=== PATIENT | female | born 1960 | race African-American/Black ===

== ENCOUNTER 2022-11-15 14:23 | Inpatient (IN) | payer OTHER ==
[2022-11-15] MEDS ORDERED: ONDANSETRON 4 MG TABLET PO ONE (14:39)
[2022-11-15] MEDS ORDERED: SODIUM CHLORIDE 0.9% 500 ML INFUS.BAG IV ONE (14:39)
[2022-11-15] MEDS ORDERED: ONDANSETRON *ODT* 4 MG TABLET ONE (14:55)
[2022-11-15] MEDS ORDERED: ONDANSETRON 4 MG/2 ML VIAL ONE (15:09)
[2022-11-15] MEDS ORDERED: ONDANSETRON 4 MG/2 ML VIAL IVPUSH ONE (15:39)
[2022-11-15] MEDS ORDERED: ACETAMINOPHEN 1000 MG/100 ML BAG IVPB ONE (15:39)
[2022-11-15] MEDS ORDERED: ACETAMINOPHEN INJECTION 100 ML IVPB ONE (15:40)
[2022-11-15 16:06] LABS: HEMATOCRIT 40.8 % (32.4-45.2); HEMOGLOBIN 13.3 GM/dL (10.7-15.3); LYMPH % 7.1 % (8-40); MCH 23.1 pg (25.7-33.7); MCHC 32.6 g/dl (32.0-36.0); MEAN CELL VOLUME 70.9 fl (80-96); MEAN PLT VOLUME 9.1 fl (7.5-11.1); MONO % 6.3 % (3.8-10.2); NEUT % 86.6 % (42.8-82.8); PLATELET COUNT 265 10^3/uL (134-434); RBC 5.75 M/mm3 (3.60-5.2); RDW 17.3 % (11.6-15.6); WHITE BLOOD COUNT 13.8 K/mm3 (4.0-10.0)
[2022-11-15] MEDS ORDERED: METOCLOPRAMIDE HCL INJECTION 10 MG/2 ML VIAL IVPUSH ONE (16:09)
[2022-11-15 16:27] LABS: POTASSIUM 4.2 mmol/L (3.5-5.1)
[2022-11-15] MEDS ORDERED: METOCLOPRAMIDE HCL INJECTION 10 MG/2 ML VIAL IVPB ONE (16:27)
[2022-11-15 16:30] LABS: ALBUMIN 4.3 g/dl (3.4-5.0); CALCIUM 10.3 mg/dL (8.5-10.1)
[2022-11-15 16:31] LABS: BLOOD UREA NITROGEN 20.8 mg/dL (7-18)
[2022-11-15 16:35] LABS: BILIRUBIN,TOTAL 0.6 mg/dL (0.2-1); TOT PROT 8.6 g/dl (6.4-8.2)
[2022-11-15] MEDS ORDERED: METOCLOPRAMIDE HCL INJECTION 10 MG/2 ML VIAL ONE (16:55)
[2022-11-15] MEDS ORDERED: PROCHLORPERAZINE INJECTION 10 MG/2 ML VIAL IVPB ONE (17:52)
[2022-11-15] MEDS ORDERED: PROCHLORPERAZINE MALEATE 5 MG TABLET ONE (18:43)
[2022-11-15] MEDS ORDERED: LORazepam 2 MG/ML SDV VIAL IVPUSH ONE (21:15)
[2022-11-15 21:48] LABS: PH,URINE 8.5 (5.0-8.0); URINE APPEARANCE CLEAR; URINE BILIRUBIN NEGATIVE (NEGATIVE); URINE COLOR YELLOW; URINE GLUCOSE (UA) NEGATIVE (NEGATIVE); URINE KETONE NEGATIVE (NEGATIVE); URINE LEUK ESTERASE NEGATIVE (NEGATIVE); URINE NITRITE NEGATIVE (NEGATIVE); URINE PROTEIN TRACE (NEGATIVE); URINE UROBILINOGEN 0.2 mg/dL (0.2-1.0)
[2022-11-15] MEDS ORDERED: CEFTRIAXONE 1,000 MG in DEXTROSE 5%-WATER - 50 ML IVPB ONE (21:48)
[2022-11-15] MEDS ORDERED: CEFTRIAXONE 1 GM/50 ML BAG ONE (21:57)
[2022-11-15] MEDS ORDERED: DEXTROSE 5%-LACTATED RINGERS 1,000 ML IV SCH (23:15)
[2022-11-16 06:06] VITALS: BMI 25.8
[2022-11-16] MEDS: ONDANSETRON 4 MG/2 ML VIAL IVPUSH PRN ×3 (06:46→16:42)
[2022-11-16 09:25] LABS: HEMATOCRIT 42.1 % (32.4-45.2); HEMOGLOBIN 13.7 GM/dL (10.7-15.3); MCH 23.2 pg (25.7-33.7); MCHC 32.6 g/dl (32.0-36.0); MEAN PLT VOLUME 9.2 fl (7.5-11.1); PLATELET COUNT 248 10^3/uL (134-434); RBC 5.93 M/mm3 (3.60-5.2)
[2022-11-16 09:40] LABS: POTASSIUM 3.9 mmol/L (3.5-5.1)
[2022-11-16 09:44] LABS: BLOOD UREA NITROGEN 10.6 mg/dL (7-18)
[2022-11-16 09:45] LABS: CALCIUM 9.2 mg/dL (8.5-10.1)
[2022-11-16 09:48] LABS: CREATININE 0.7 mg/dL (0.55-1.3)
[2022-11-16 09:49] LABS: TOT PROT 8.2 g/dl (6.4-8.2)
[2022-11-16 09:50] LABS: BILIRUBIN,TOTAL 0.6 mg/dL (0.2-1)
[2022-11-16] MEDS ORDERED: LACTOBACILLUS ACIDOPHILUS 1 TABLET PO SCH (10:00)
[2022-11-16] MEDS ORDERED: CEFTRIAXONE 1 GM in DEXTROSE 5%-WATER - 50 ML IVPB SCH (10:00)
[2022-11-16] MEDS ORDERED: PANTOPRAZOLE SODIUM 40 MG VIAL IVPUSH SCH (10:00)
[2022-11-16] MEDS: VENLAFAXINE HCL 75 MG E.R. CAPSULES PO SCH ×2 (11:04→18:59)
[2022-11-16] MEDS: LOSARTAN POTASSIUM 50 MG TABLET PO SCH ×2 (11:04→18:59)
[2022-11-16] MEDS: ENOXAPARIN NA (PORCINE) 40 MG/0.4 ML DISP.SYRIN SQ SCH (11:04)
[2022-11-16] MEDS ORDERED: METOCLOPRAMIDE HCL INJECTION 10 MG/2 ML VIAL IVPUSH ONE (11:53)
[2022-11-16 17:36] LABS: METHADONE, UR NEGATIVE (NEGATIVE); URINE BENZODIAZEPINES NEGATIVE (NEGATIVE)
[2022-11-16 17:37] LABS: COCAINE, UR NEGATIVE (NEGATIVE); OPIATES, URI NEGATIVE (NEGATIVE); URINE BARBITURATES NEGATIVE (NEGATIVE)
[2022-11-16] MEDS: METOCLOPRAMIDE HCL 10 MG TABLET (FP) PO SCH (17:37)
[2022-11-16 17:38] LABS: PHENCYCLIDINE,URINE NEGATIVE (NEGATIVE)
[2022-11-16 17:43] LABS: URINE AMPHETAMINES NEGATIVE (NEGATIVE)
[2022-11-16] MEDS: SODIUM CHLORIDE 1,000 ML IV SCH (19:38)
[2022-11-16] MEDS: ACETAMINOPHEN 1000 MG/100 ML BAG IVPB PRN (22:28)
[2022-11-16] MEDS: ZOLPIDEM TARTRATE 5 MG TABLET PO PRN (22:28)
[2022-11-17] MEDS: ONDANSETRON 4 MG/2 ML VIAL IVPUSH PRN ×2 (04:19→08:02)
[2022-11-17] MEDS: METOCLOPRAMIDE HCL 10 MG TABLET (FP) PO SCH (06:35)
[2022-11-17 08:55] LABS: BASO % 0.4 % (0-2.0); EOS % 0.1 % (0-4.5); HEMOGLOBIN 14.9 GM/dL (10.7-15.3); LYMPH % 20.8 % (8-40); MCH 22.9 pg (25.7-33.7); MCHC 32.4 g/dl (32.0-36.0); MEAN CELL VOLUME 70.7 fl (80-96); MONO % 12.4 % (3.8-10.2); NEUT % 66.3 % (42.8-82.8); PLATELET COUNT 242 10^3/uL (134-434); RDW 16.9 % (11.6-15.6); WHITE BLOOD COUNT 9.2 K/mm3 (4.0-10.0)
[2022-11-17 09:16] LABS: POTASSIUM 3.6 mmol/L (3.5-5.1)
[2022-11-17 09:20] LABS: ALBUMIN 3.9 g/dl (3.4-5.0); BLOOD UREA NITROGEN 11.1 mg/dL (7-18); CALCIUM 9.9 mg/dL (8.5-10.1); MAGNESIUM 2.2 mg/dL (1.8-2.4)
[2022-11-17 09:23] LABS: CREATININE 0.8 mg/dL (0.55-1.3)
[2022-11-17 09:25] LABS: BILIRUBIN,TOTAL 1.2 mg/dL (0.2-1); TOT PROT 8.1 g/dl (6.4-8.2)
[2022-11-17 09:36] VITALS: RESP 20
[2022-11-17] MEDS: LOSARTAN POTASSIUM 50 MG TABLET PO SCH (09:38)
[2022-11-17] MEDS: ENOXAPARIN NA (PORCINE) 40 MG/0.4 ML DISP.SYRIN SQ SCH (09:38)
[2022-11-17] MEDS: VENLAFAXINE HCL 75 MG E.R. CAPSULES PO SCH (09:38)
[2022-11-17] MEDS: SODIUM CHLORIDE 1,000 ML IV SCH ×2 (09:39→22:04)
[2022-11-17] MEDS: METOCLOPRAMIDE HCL INJECTION 10 MG/2 ML VIAL IVPUSH PRN ×2 (12:03→21:17)
[2022-11-17] MEDS ORDERED: ONDANSETRON 4 MG/2 ML VIAL IVPB ONE ×2 (13:08→14:45)
[2022-11-17] MEDS: ACETAMINOPHEN 1000 MG/100 ML BAG IVPB PRN (21:15)
[2022-11-17] MEDS: ZOLPIDEM TARTRATE 5 MG TABLET PO PRN (22:05)
[2022-11-18] MEDS: METOCLOPRAMIDE HCL INJECTION 10 MG/2 ML VIAL IVPUSH PRN ×2 (06:41→14:16)
[2022-11-18] MEDS: ACETAMINOPHEN 1000 MG/100 ML BAG IVPB PRN (06:41)
[2022-11-18 08:52] LABS: BASO % 0.3 % (0-2.0); EOS % 0.4 % (0-4.5); HEMATOCRIT 44.2 % (32.4-45.2); HEMOGLOBIN 14.8 GM/dL (10.7-15.3); LYMPH % 27.6 % (8-40); MCH 23.9 pg (25.7-33.7); MCHC 33.4 g/dl (32.0-36.0); MEAN CELL VOLUME 71.5 fl (80-96); MEAN PLT VOLUME 9.4 fl (7.5-11.1); MONO % 12.2 % (3.8-10.2); NEUT % 59.5 % (42.8-82.8); PLATELET COUNT 219 10^3/uL (134-434); RBC 6.19 M/mm3 (3.60-5.2); RDW 16.5 % (11.6-15.6); WHITE BLOOD COUNT 7.9 K/mm3 (4.0-10.0)
[2022-11-18 09:38] LABS: POTASSIUM 3.2 mmol/L (3.5-5.1)
[2022-11-18 09:46] LABS: CALCIUM 9.1 mg/dL (8.5-10.1)
[2022-11-18 09:47] LABS: BLOOD UREA NITROGEN 12.3 mg/dL (7-18); MAGNESIUM 2.4 mg/dL (1.8-2.4)
[2022-11-18 09:50] LABS: CREATININE 0.8 mg/dL (0.55-1.3)
[2022-11-18 09:51] LABS: TOT PROT 7.8 g/dl (6.4-8.2)
[2022-11-18 09:52] LABS: BILIRUBIN,TOTAL 1.1 mg/dL (0.2-1)
[2022-11-18] MEDS ORDERED: POTASSIUM CHLORIDE TABS 20 MEQ TABLET.ER (FP) PO ONE (11:11)
[2022-11-18] MEDS: VENLAFAXINE HCL 75 MG E.R. CAPSULES PO SCH (11:47)
[2022-11-18] MEDS: ENOXAPARIN NA (PORCINE) 40 MG/0.4 ML DISP.SYRIN SQ SCH (11:47)
[2022-11-18] MEDS: LOSARTAN POTASSIUM 50 MG TABLET PO SCH (11:47)
[2022-11-18] MEDS: SODIUM CHLORIDE 1,000 ML IV SCH (11:48)
[2022-11-18] MEDS ORDERED: amLODIPine BESYLATE 5 MG TABLET (FP) PO ONE (13:04)
[2022-11-18 15:35] VITALS: BP 150/86; PULSE 91; TEMP 98.8
== END 2022-11-18 17:08 | disposition home or self-care (01) | DRG 392 ==
LOC: JER 14:23 → INTOOBSV 21:50 → JERBED 21:50 → J8W 11-16 01:06 → OBSVTOIN 11-17 16:57
PROVIDERS: ADMIT Internal Medicine; ATTEND Nurse Practitioner Family
DX: K52.9 Noninfective gastroenteritis and colitis, unspecified (principal); N39.0 Urinary tract infection, site not specified; F32.A Depression, unspecified; E78.5 Hyperlipidemia, unspecified; D25.9 Leiomyoma of uterus, unspecified; I10 Essential (primary) hypertension; G47.00 Insomnia, unspecified; D72.829 Elevated white blood cell count, unspecified; E86.0 Dehydration
CPT/HCPCS: 0241U-QW; 36415; 71045-TC-FY; 74177-TC; 76705-TC; 80053; 80307; 81003; 82962; 83690; 83735; 84100; 84484; 84703; 85025; 85027; 87086; 93005; 93010; 99285-25; C1887; G0378; Q9967